=== PATIENT | male | born 1990 | race Caucasian/White ===

== ENCOUNTER 2024-05-20 18:56 | Emergency (ER) | payer OTHER ==
[2024-05-20 19:17] VITALS: BMI 42.3
[2024-05-20 19:52] LABS: HEMATOCRIT 45.5 % (35.4-49); HEMOGLOBIN 15.2 G/dL (11.7-16.9); MCH 27.4 pg (25.7-33.7); MCHC 33.5 g/dl (32.0-35.9); MEAN CELL VOLUME 81.7 fl (80-96); MEAN PLT VOLUME 10.1 fl (7.5-11.1); RBC 5.57 10^6/uL (4.00-5.60); RDW 14.4 % (11.9-15.9); WHITE BLOOD COUNT 8.7 10^3/uL (4.0-10.8)
[2024-05-20 20:04] LABS: PLATELET ESTIMATE ADEQUATE
[2024-05-20 20:10] LABS: BILIRUBIN,TOTAL 0.5 mg/dl (0.2-1); CALCIUM 10.4 mg/dl (8.5-10.1); CREATININE 0.9 mg/dl (0.6-1.3); TOT PROT 7.3 g/dl (6.4-8.2)
[2024-05-20 21:20] VITALS: BP 151/105; PULSE 55; RESP 18; TEMP 98.8
== END 2024-05-20 21:58 | disposition home or self-care (01) ==
LOC: FER 18:56
DX: R42 Dizziness and giddiness (principal); R11.0 Nausea
CPT/HCPCS: 36415; 70450-TC; 80053; 82962; 85027; 99284-25